=== PATIENT | female | born 1990 | race Caucasian/White ===

== ENCOUNTER 2017-01-21 09:57 | Inpatient (IN) ==
[2017-01-21 11:47] LABS: Apearance,Urine CLEAR (Clear); Bilirubin,Urine Negative (Negative); Blood, Urine Negative (Negative); Glucose,Urine (UA) Negative (Negative); Ketones,Urine Negative (Negative); Mucus,Urine Occasional /LPF (Occasional); Nitrite,Urine Negative (Negative); Protein,Urine Negative; RBC,Urine <1 /HPF (0-4); Squamous Epithelial Cell,Urine Occasional /HPF (0-10); Urine Color Yellow (Yellow); Urine Specific Gravity 1.015 (1.001-1.035); Urine Urobilinogen < 2.0 EU/DL (0.2-1.0); WBC,Urine <1 /HPF (0-6)
[2017-01-21] MEDS: LACTATED RINGERS 1,000 ML IV SCH ×3 (11:58→23:22)
[2017-01-21] MEDS ORDERED: OXYTOCIN/LR 20 UNIT/1,000 ML BAG IV SCH (12:00)
[2017-01-21] MEDS ORDERED: ONDANSETRON 4 MG/2 ML VIAL IV PRN (12:00)
[2017-01-21] MEDS ORDERED: BUTORPHANOL 2 MG/ML VIAL IV PRN (12:00)
[2017-01-21 12:13] LABS: Basophils % 0.3 % (0.0-0.8); Eosinophils # 0.1 10*3/uL (0.0-0.87); Eosinophils % 0.6 % (0.00-10.9); Hematocrit 35.7 VOL% (35.7-47.0); Hemoglobin 12.5 GM/DL (12.0-16.0); Mean Corpuscular Hemoglobin 29 PG (27-34); Mean Corpuscular Volume 83.2 FL (87-102); Mean Platelet Volume 10.6 FL (9.6-12.0); Monocytes # 0.8 10*3/uL (0.11-0.8); Monocytes % 7.4 % (1.7-12.7); Neutrophils # 7.5 10*3/uL (1.4-7.4); Neutrophils % 71.7 % (38.7-73.9); Platelet Count 183 T/CUMM (130-400); Red Blood Count 4.29 MC/CUMM (3.8-5.5); Red Cell Distribution Width 13.9 % (9.3-17.3); White Blood Count 10.5 T/CUMM (4-12)
[2017-01-21] MEDS ORDERED: FAMOTIDINE 20 MG/2 ML VIAL IV ONE (13:23)
[2017-01-21] MEDS ORDERED: CITRIC ACID/SODIUM CITRATE 30 ML UDCUP PO ONE (13:23)
[2017-01-21] MEDS ORDERED: hydrOXYzine HCL 25 MG/1 ML VIAL IM PRN (13:23)
[2017-01-21] MEDS ORDERED: ePHEDrine 50 MG/ML AMP IV PRN (13:23)
[2017-01-21] MEDS ORDERED: diphenhydrAMINE 50 MG/1 ML VIAL IV PRN (13:23)
[2017-01-21] MEDS ORDERED: fentaNYL 2 MCG/ROPIV 0.2% EPID 150 ML EPIDURAL SCH (13:23)
--- NOTE | 2017-01-21 14:24 | OB/GYN History & Physical ---
History of Present Illness Chief complaint: Here for with C/O SROM since this morning with clear fluid History of present illness: Ms. Wu is a 26 year old female who is a with an EDC 01/30/17 per 7.3 wks ultrasound with EGA @ 38.5 wks. Receives care @ [facility] with Shaista Diana CNM, [facility]. Records are available and reviewed, are current, and up to date. Here for labor management secondary to SROM @ 0700 this morning. Denies any decreased movement, vaginal bleeding, or cramping presently. During the course of her , she was treated for a UTI with Cipro. H/o GBS in the past Labs: GBS negative, rubella immune, VDRL nonreactive, O positive, antibody screen negative; urine cultrue negative; HBsAg negative; HIV negative; GC negative, Chlamydia negative; Vitamin D 25.5; diabetic screen 125 A: IUP @ 38.5 wks, SROM, Category I FHR tracing, IUPC inserted Home Medications Medication Instructions Recorded Confirmed Type Multivitamin () [ 1 tablet PO DAILY 02/03/15 01/21/17 History Vitamin] Cholecalciferol (Vitamin D3) 10,000 unit PO DAILY 01/21/17 01/21/17 History [Vitamin D3] Ferrous Sulfate [Iron] 325 mg PO DAILY 01/21/17 01/21/17 History Allergies Allergy/AdvReac Type Severity Reaction Status Date / Time Sulfa (Sulfonamide Allergy Severe HIVES Verified 01/14/15 14:37 Antibiotics) 12 point system: reviewed and no additional remarkable complaints except as stated Medical,Surgical,& Family Hx - Medical History Reproductive: No history of: Ectopic , Complication Other: History of: Miscellaneous Medical Problems (H/O Mastitis, H/O GBS) - Surgical History HEENT Surgeries: Surgical HX of: Tonsilectomy & Adenoidectomy Reproductive Surgeries: Patient denies;: Section - Family History Family History: Reports;: Family Diabetes (MGM) Denies;: Family Anesthesia Reaction, Family Cancer, Family Heart Disease, Family Hematology, Family Hypertension, Family Psychiatric Problems, Family Stroke, Additional Family History - Social History Smoking Status: Never smoker Frequency of Alcohol Use: None Type of Drug Use: None Marital Status: Lives With:: Spouse Functional capacity: independent ambulation Exam WAREHOUSE LEAD - Constitutional Vitals: Vital Signs Temp Pulse Resp BP Pulse Ox 01/21/17 12:00 97.7 F 88 18 114/67 98 General appearance: normal weight, no acute distress - Antepartum / Post Antepartum Exam Cervix - Dilatation: 3 cm Effacement: 50% Station: -3 Rupture: SROM with ROM of forebag performed with clear fluid noted Presentation: vtx Heart Rate: 130s with spontaneous variabilty. No decelerations noted. [place]: every 3-5 min/ 50-60 sec/ mild. IUPC inserted with clear return noted Breast: bilateral: normal Abdomen obstetrics: Present: bowel sounds normal Vulva: bilateral: normal Vagina: Present: normal moisture Uterus exam: Present: normal size Adnexa: bilateral: normal Anus/Rectum: Present: normal perianal skin - Head Head exam: Present: normal inspection - Eye Eye exam: Present: EOMI - ENT ENT exam: Present: normal exam - Neck Neck exam: Present: normal inspection - Respiratory Respiratory exam: Present: clear to auscultation bilaterally - Cardiovascular Cardiovascular exam: Present: bradycardia - GI/Abdominal GI/Abdominal exam: Present: normal bowel sounds - Extremities Exam Extremities exam: Present: normal inspection, normal capillary refill - Back Exam Back exam: Present: normal inspection - Neurological Exam Neurological exam: Present: alert, oriented X3, normal gait - Psychiatric Psychiatric exam: Present: normal affect, normal mood - Skin Skin exam: Present: normal color, warm, dry Assessment and Plan (1) Spontaneous rupture of amniotic membranes Status: Acute Current Visit: Yes (2) History of group B Streptococcus (GBS) infection Status: Acute Current Visit: Yes Results - Labs CBC & BMP: 01/21/17 12:08 Labs: Laboratory Tests 01/21/17 01/21/17 01/21/17 10:15 12:08 12:08 WBC 10.5 RBC 4.29 Hgb 12.5 Hct 35.7 MCV 83.2 L MCH 29 MCHC 35.0 RDW 13.9 Plt Count 183 MPV 10.6 Neut % (Auto) 71.7 Lymph % (Auto) 19.0 L [place] % (Auto) 7.4 Eos % (Auto) 0.6 Baso % (Auto) 0.3 Neut # (Auto) 7.5 H Lymph # (Auto) 2.0 [place] # (Auto) 0.8 Eos # (Auto) 0.1 Baso # (Auto) 0.0 Immature Gran % 1.0 Nucleated RBC % 0.0 Immature Gran # 0.10 Nucleated RBCs # 0.00 Urine Color Yellow Urine Appearance Clear Urine pH 5.0 Ur Specific [place] 1.015 Urine Protein Negative Urine Glucose (UA) Negative Urine Ketones Negative Urine Blood Negative Urine Nitrate Negative Urine Bilirubin Negative Urine Urobilinogen < 2.0 H Urine Leukocytes Negative Urine RBC <1 Urine WBC <1 Ur Squamous Epith Cells Occasional Urine Mucus Occasional Ur Culture Indicated? Not indicated Blood Type O POSITIVE Antibody Screen Negative
[2017-01-21] MEDS ORDERED: AMPICILLIN INJ 2,000 MG in SODIUM CHLORIDE 0.9% 100 ML IV ONE (14:38)
[2017-01-21 17:05] LABS: Apearance,Urine CLEAR (Clear); Bilirubin,Urine Negative (Negative); Blood, Urine Negative (Negative); Glucose,Urine (UA) Negative (Negative); Ketones,Urine 80 mg/dL (Negative); Mucus,Urine Occasional /LPF (Occasional); Nitrite,Urine Negative (Negative); Protein,Urine Negative; RBC,Urine <1 /HPF (0-4); Urine Color Yellow (Yellow); Urine Specific Gravity 1.014 (1.001-1.035); Urine Urobilinogen < 2.0 EU/DL (0.2-1.0); WBC,Urine <1 /HPF (0-6)
--- NOTE | 2017-01-21 18:30 | Operative Note ---
Date of procedure: 01/21/17 Pre-op diagnosis: IUP @ 38.5 wks, SROM, H/O GBS positive Post-op diagnosis: other (, Nuchal x1, Pitocin Augmentation) Procedure: Receive patient in dorsal lithotomy position. Patient draped and prepped. At 1755, spontaneous delivery of head in KRAIG position under an epidural anesthetics. Tight nuchal cord x 1 noted and unable to reduce. Baby somersaulted through cord, delivered in usual fashion and secured. Mouth and nose bulb suctioned. Good tone and cry noted. Male placed on mother's chest. Cord doubly clamped, cord cut by the father of the baby and baby attended per nursery RN. At 1807, spontaneous delivery of placenta via Jeanne with 3 vessel cord noted, normal cord insertion, mild calcifications noted, intact. Hemostasis maintained with fundal massage and Pitocin 20 units in 1000cc of LR. First degree vaginal laceration noted and repaired with 3-0 Vicryl under an epidural anesthetic- stable, no bleeding noted. Male with Apgars 8 and 9 and mother are stable. Mother desires to breastfeed. 's weight is pending. Anesthesia: epidural Surgeon / Physician: Vonnie Diana Estimated blood loss: other (150 cc) Specimens: other (Placenta to pathology secondary to h/o GBS positive) Condition: stable Disposition: floor Results - Labs CBC & BMP: 01/21/17 12:08 Discharge Plan - Discharge Medications No Action Multivitamin () [ Vitamin] 1 tablet PO DAILY Ferrous Sulfate [Iron] 325 mg PO DAILY Cholecalciferol (Vitamin D3) [Vitamin D3] 10,000 unit PO DAILY - Follow Up or Referral - Forms/Instructions
[2017-01-21] MEDS ORDERED: DIPH/TET/ACEL PERT BOOSTER VACCINE 0.5 ML VIAL IM ONE (18:32)
[2017-01-21] MEDS ORDERED: WITCH HAZEL PADS 100/JAR TOP PRN (18:32)
[2017-01-21] MEDS ORDERED: RHO(D) IMMUNE GLOBULIN 300 MCG SYRINGE IM ONE (18:32)
[2017-01-21] MEDS ORDERED: ACETAMINOPHEN 325 MG TABLET PO PRN (18:32)
[2017-01-21] MEDS ORDERED: oxyCODONE/ACETAMINOPHEN 5-325 MG TABLET PO PRN ×2 (18:32)
[2017-01-21] MEDS ORDERED: HYDROCORTISONE 2.5% RECTAL CREAM 30 GM TUBE TOP PRN (18:32)
[2017-01-21] MEDS ORDERED: LANOLIN 50% CREAM 0.3 OZ TUBE TOP PRN (18:32)
[2017-01-21] MEDS ORDERED: MEASLES/MUMPS/RUBELLA VACCINE 0.5 ML VIAL SUBCUT ONE (18:32)
[2017-01-21] MEDS ORDERED: BISACODYL 10 MG SUPP RECTAL PRN (18:32)
[2017-01-21] MEDS ORDERED: BENZOCAINE 20%/MENTHOL 0.5% SPRAY 56 GM CAN TOP PRN (18:32)
[2017-01-21] MEDS: IBUPROFEN 800 MG TABLET PO PRN (21:22)
[2017-01-21] MEDS: DOCUSATE SODIUM 100 MG CAPSULE PO SCH (22:20)
[2017-01-21] MEDS: FERROUS SULFATE 325 MG TABLET PO SCH (22:20)
[2017-01-21] MEDS ORDERED: OXYTOCIN/LR 20 UNIT/1,000 ML BAG IV ONE (22:30)
[2017-01-22 03:08] LABS: Basophils # 0.1 10*3/uL (0.0-0.2); Basophils % 0.3 % (0.0-0.8); Eosinophils # 0.1 10*3/uL (0.0-0.87); Eosinophils % 0.8 % (0.00-10.9); Hematocrit 34.6 VOL% (35.7-47.0); Hemoglobin 12.1 GM/DL (12.0-16.0); Immature Granulocytes % 0.6 %; Lymphocytes % 13.2 % (21.3-54.2); Mean Corpuscular Hemoglobin 29 PG (27-34); Mean Corpuscular Volume 82.6 FL (87-102); Mean Platelet Volume 10.7 FL (9.6-12.0); Monocytes # 1.1 10*3/uL (0.11-0.8); Neutrophils # 12.1 10*3/uL (1.4-7.4); Neutrophils % 78.1 % (38.7-73.9); Platelet Count 176 T/CUMM (130-400); Red Blood Count 4.19 MC/CUMM (3.8-5.5); Red Cell Distribution Width 13.7 % (9.3-17.3); White Blood Count 15.5 T/CUMM (4-12)
[2017-01-22] MEDS ORDERED: NON-FORMULARY MEDICATION (Cholecalciferol (Vitamin D3) [Vitamin D3] 10,000 UNIT) PO SCH (09:00)
[2017-01-22] MEDS: DOCUSATE SODIUM 100 MG CAPSULE PO SCH ×2 (09:10→22:03)
[2017-01-22] MEDS: MULTIVITAMIN (PRENATAL) TABLET PO SCH (09:10)
[2017-01-22] MEDS: FERROUS SULFATE 325 MG TABLET PO SCH ×2 (09:10→22:03)
--- NOTE | 2017-01-22 10:44 | Anesthesia Post-Op ---
Anesthesia Post OP - Post Ansesthetic Evaluation Patient seen in post op: Yes Resp: within normal limits CV: within normal limits Mental: within normal limits Temp: within normal limits [id number]: within normal limits Nausea and Vomiting: within normal limits Pain: within normal limits
--- NOTE | 2017-01-22 12:40 | OB/GYN Progress Note ---
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 Denies any problems. States baby weighed 7 pounds 15 ounces. A: Day 1, Breast Feeding, Stable P: Continue routine care. Questions answered to desired level of satisfaction. Exam PROGRAM COORDINATOR [employer] - Constitutional Vitals: Vital Signs Temp Pulse Resp BP Pulse Ox 01/22/17 08:00 97.0 F L 66 18 104/60 01/22/17 04:00 97.3 F L 51 L 16 105/55 98 01/21/17 23:24 98.5 F 63 16 105/59 98 01/21/17 22:30 96 H 17 118/74 98 01/21/17 21:30 87 16 110/70 99 01/21/17 21:00 83 16 114/71 98 01/21/17 20:30 98.4 F 70 17 107/57 99 01/21/17 20:00 98.4 F 88 17 115/74 General appearance: normal weight, no acute distress - Antepartum / Post Post Exam Breast: bilateral: normal Abdomen obstetrics: Present: bowel sounds normal Vagina: Present: normal moisture Cervix: Present: normal Uterus exam: Present: enlarged (firm, midline, 2 FB below umbilicus), normal contour Adnexa: bilateral: normal Anus/Rectum: Present: normal perianal skin - Head Head exam: Present: normal inspection - ENT ENT exam: Present: normal exam - Respiratory Respiratory exam: Present: clear to auscultation bilaterally - Breast Menstruation: other (Scant rubra noted) - Cardiovascular Cardiovascular exam: Present: bradycardia, regular rate and rhythm - GI/Abdominal GI/Abdominal exam: Present: normal bowel sounds - Extremities Exam Extremities exam: Present: normal inspection, normal capillary refill, full ROM - Back Exam Back exam: Present: normal inspection - Neurological Exam Neurological exam: Present: alert, oriented X3, normal gait - Psychiatric Psychiatric exam: Present: normal affect, normal mood - Skin Skin exam: Present: normal color, warm, dry Results - Labs CBC & BMP: 01/22/17 02:58 Labs: Laboratory Tests 01/21/17 01/21/17 01/21/17 10:15 12:08 12:08 WBC 10.5 RBC 4.29 Hgb 12.5 Hct 35.7 MCV 83.2 L MCH 29 MCHC 35.0 RDW 13.9 Plt Count 183 MPV 10.6 Neut % (Auto) 71.7 Lymph % (Auto) 19.[address] [place] % (Auto) 7.4 Eos % (Auto) 0.6 Baso % (Auto) 0.3 Neut # (Auto) 7.5 H Lymph # (Auto) 2.0 [place] # (Auto) 0.8 Eos # (Auto) 0.1 Baso # (Auto) 0.0 Immature Gran % 1.0 Nucleated RBC % 0.0 Immature Gran # 0.10 Nucleated RBCs # 0.00 Urine Color Yellow Urine Appearance Clear Urine pH 5.0 Ur Specific [place] 1.015 Urine Protein Negative Urine Glucose (UA) Negative Urine Ketones Negative Urine Blood Negative Urine Nitrate Negative Urine Bilirubin Negative Urine Urobilinogen < 2.0 H Urine Leukocytes Negative Urine RBC <1 Urine WBC <1 Ur Squamous Epith Cells Occasional Urine Mucus Occasional Ur Culture Indicated? Not indicated Blood Type O POSITIVE Antibody Screen Negative 01/21/17 01/22/17 16:23 02:58 WBC 15.5 H D RBC 4.19 Hgb 12.1 Hct 34.6 L MCV 82.6 L MCH 29 MCHC 35.0 RDW 13.7 Plt Count 176 MPV 10.7 Neut % (Auto) 78.1 H Lymph % (Auto) 13.[address] [place] % (Auto) 7.0 Eos % (Auto) 0.8 Baso % (Auto) 0.3 Neut # (Auto) 12.1 H Lymph # (Auto) 2.0 [place] # (Auto) 1.1 H Eos # (Auto) 0.1 Baso # (Auto) 0.1 Immature Gran % 0.6 Nucleated RBC % 0.0 Immature Gran # 0.10 Nucleated RBCs # 0.00 Urine Color Yellow Urine Appearance Clear Urine pH 7.0 Ur Specific [place] 1.014 Urine Protein Negative Urine Glucose (UA) Negative Urine Ketones 80 Urine Blood Negative Urine Nitrate Negative Urine Bilirubin Negative Urine Urobilinogen < 2.0 H Urine Leukocytes Negative Urine RBC <1 Urine WBC <1 Ur Squamous Epith Cells Urine Mucus Occasional Ur Culture Indicated? Not indicated Blood Type Antibody Screen
[2017-01-22] MEDS ORDERED: BENZOCAINE 20%/MENTHOL 0.5% SPRAY 56 GM CAN TOP PRN (14:43)
[2017-01-22] MEDS: IBUPROFEN 800 MG TABLET PO PRN (14:50)
[2017-01-23 07:21] VITALS: BP 100/51
[2017-01-23] MEDS: MULTIVITAMIN (PRENATAL) TABLET PO SCH (08:31)
[2017-01-23] MEDS: DOCUSATE SODIUM 100 MG CAPSULE PO SCH (08:32)
[2017-01-23] MEDS: FERROUS SULFATE 325 MG TABLET PO SCH (08:32)
--- NOTE | 2017-01-23 08:54 | Discharge Summary ---
Hospital Course - Hospital Course Hospital Course: Patient is a 3 now para 3003 day presented with spontaneous labor at 38.5 weeks gestation. Labor progressed under an epidural anesthetic for the patient to deliver a 7 lbs. 15 oz. male with Apgars 8, 9 experiencing a first- degree laceration that was repaired. She is presently breast and bottlefeeding and she has been stable. She is being discharged home today Diagnosis - Discharge Diagnosis (1) Spontaneous rupture of amniotic membranes Status: Resolved (2) History of group B Streptococcus (GBS) infection Status: Resolved (3) (normal spontaneous vaginal delivery) Status: Resolved Discharge Plan - Discharge Data Disposition: Disch To Home/Self Care Condition at Discharge: Stable Discharge Diet: advance to your usual diet Activity: resume usual activities as tolerated Hygiene: may shower Weight Bearing at Discharge: full weight bearing Driving: not for (2 week) Contact your physician if you experience:: fever over 101, Difficulty voiding, Redness or swelling, Nausea/Vomiting, Shortness of breath, Bleeding, pain uncontrolled by pain medications - Discharge Medications New Ferrous Sulfate Tab [Feosol Original Tab] 325 mg PO BID #60 tablet Ibuprofen Tab [Motrin Tab] 800 mg PO Q8H PRN #90 tablet PRN Reason: Pain Moderate (4-7) No Action Multivitamin () [ Vitamin] 1 tablet PO DAILY Ferrous Sulfate [Iron] 325 mg PO DAILY Cholecalciferol (Vitamin D3) [Vitamin D3] 10,000 unit PO DAILY - Follow Up or Referral Follow Up: Vonnie Diana CFNP [Advanced Practice Nurse] - 2 Weeks () - Forms/Instructions Exam - Constitutional Vitals: Period Temp Pulse Resp BP Sys/Toure Pulse Ox Last 24 Hr 97.1 F-98.1 F 62-86 17-20 97-124/51-72 98-100 General appearance: no acute distress - Head Head exam: Present: normal inspection - Eye Eye exam: Present: EOMI Pupils: Present: ROGER - ENT ENT exam: Present: normal exam - Neck Neck exam: Present: normal inspection - Respiratory Respiratory exam: Present: clear to auscultation bilaterally - Cardiovascular Cardiovascular exam: Present: regular rate and rhythm - GI/Abdominal GI/Abdominal exam: Present: normal bowel sounds, other (Uterus firm, midline, 3 fingerbreadths below the umbilicus. Scant rubra noted on perineal pad) - Extremities Exam Extremities exam: Present: normal inspection, normal capillary refill, full ROM - Back Exam Back exam: Present: normal inspection - Neurological Exam Neurological exam: Present: alert, oriented X3, normal gait - Psychiatric Psychiatric exam: Present: normal affect, normal mood - Skin Skin exam: Present: normal color, warm, dry Discharge Results Procedures and tests throughout hospitalization: Laboratory Tests 01/21/17 01/21/17 01/21/17 10:15 12:08 12:08 WBC 10.5 RBC 4.29 Hgb 12.5 Hct 35.7 MCV 83.2 L MCH 29 MCHC 35.0 RDW 13.9 Plt Count 183 MPV 10.6 Neut % (Auto) 71.7 Lymph % (Auto) 19.0 L [place] % (Auto) 7.4 Eos % (Auto) 0.6 Baso % (Auto) 0.3 Neut # (Auto) 7.5 H Lymph # (Auto) 2.0 [place] # (Auto) 0.8 Eos # (Auto) 0.1 Baso # (Auto) 0.0 Immature Gran % 1.0 Nucleated RBC % 0.0 Immature Gran # 0.10 Nucleated RBCs # 0.00 Urine Color Yellow Urine Appearance Clear Urine pH 5.0 Ur Specific [place] 1.015 Urine Protein Negative Urine Glucose (UA) Negative Urine Ketones Negative Urine Blood Negative Urine Nitrate Negative Urine Bilirubin Negative Urine Urobilinogen < 2.0 H Urine Leukocytes Negative Urine RBC <1 Urine WBC <1 Ur Squamous Epith Cells Occasional Urine Mucus Occasional Ur Culture Indicated? Not indicated Blood Type O POSITIVE Antibody Screen Negative 01/21/17 01/22/17 16:23 02:58 WBC 15.5 H D RBC 4.19 Hgb 12.1 Hct 34.6 L MCV 82.6 L MCH 29 MCHC 35.0 RDW 13.7 Plt Count 176 MPV 10.7 Neut % (Auto) 78.1 H Lymph % (Auto) 13.2 L [place] % (Auto) 7.0 Eos % (Auto) 0.8 Baso % (Auto) 0.3 Neut # (Auto) 12.1 H Lymph # (Auto) 2.0 [place] # (Auto) 1.1 H Eos # (Auto) 0.1 Baso # (Auto) 0.1 Immature Gran % 0.6 Nucleated RBC % 0.0 Immature Gran # 0.10 Nucleated RBCs # 0.00 Urine Color Yellow Urine Appearance Clear Urine pH 7.0 Ur Specific [place] 1.014 Urine Protein Negative Urine Glucose (UA) Negative Urine Ketones 80 Urine Blood Negative Urine Nitrate Negative Urine Bilirubin Negative Urine Urobilinogen < 2.0 H Urine Leukocytes Negative Urine RBC <1 Urine WBC <1 Ur Squamous Epith Cells Urine Mucus Occasional Ur Culture Indicated? Not indicated Blood Type Antibody Screen DS: Provider Date of admission: 01/21/17 11:32 Primary care physician: . No PCP Attending physician on admission: Dane Llanes DO Consults: 01/21/17 12:00 Consult to Anesthesiology [CONS] Routine Consulting Provider: Reason for Anesthesiology: Epidural Consult Comment: Epidural for pain managment 01/21/17 18:32 Consult to Choke Setter [CONS] Routine Consult Choke Setter: Breast Feeding Discharging clinician: CLAUDIA Suh
--- NOTE | 2017-01-23 18:18 | Pathology Report from [facility] ---
[facility] [place] # : [id number] PATIENT NAME : Solomon Wiggins ORDERING DR : MASON SALINAS DO CLINICAL HX: IUP @ 38.5 weeks vaginal delivery with history of positive GBS POST-OP DX: Same SPECIMEN INFO: Placenta GROSS DESCRIPTION: Received fresh labeled SOLOMON WIGGINS is a 521 gm placenta measuring 18.5 x 4.5 x 2.2 cm. The membranes are pink cutler and translucent. The umbilical cord measures 34.5 cm, contains three vessels and is eccentrically inserted. The surface is blue wallace and circumarginate. The maternal surface displays mildly disrupted red wallace cotyledons with a few scattered superficial calcifications seen. Sectioning reveals no gross abnormalities. Sections submitted A- membranes and cord, B- and maternal surfaces. DIAGNOSIS FOR SOLOMON WIGGINS: PLACENTA, 38.5 WEEKS, VAGINAL DELIVERY: Mature placenta, 521 grams. Unremarkable membranes. Very early, focal acute funisitis. Trivascular umbilical cord, 34.5 cm in length. COLLECTED DATE: 01/22/2017 [facility] REPORT DATE: 01/23/2017 ELECTRONICALLY SIGNED BY: Mary Jane Steiner M.D. 01/23/2017 - 10:53:00 NED
== END 2017-01-23 14:00 | disposition home or self-care (01) | DRG 775 ==
LOC: N.LDOUT 09:57 → N.LD 09:58 → N.OB 01-22 13:31
PROVIDERS: ADMIT Obstetrics & Gynecology; ATTEND Obstetrics & Gynecology